=== PATIENT | male | born 1990 | race Caucasian/White ===

== ENCOUNTER → 2020-01-25 | Outpatient (CLI) | payer OTHER ==
[~2020-01-25] MED LIST: AMANTADINE100 MG PO; COPAXONE20 MG/KIT IM; COPAXONE20 MG/KIT INJ; DEPAKOTE250 MG PO; FISH OIL300 MG; FLOMAX0.4 MG PO; LEVAQUIN750 MG PO; TEGRETOL XR100 MG PO; TOPAMAX50 MG; VERAPAMIL ER180 M1; VITAMIN D35000 UNI1 OD
--- NOTE | 2020-01-25 19:13 | Diagnostic Imaging Report ---
Hepatobiliary Scan with Gallbladder Ejection Fraction Reason for exam: RUQ pain Technique: Following intravenous administration of 6.6 millicuries of Tc-99m mebrofenin, dynamic images of the abdomen in the anterior projection were obtained through 60 minutes. Sincalide (CCK analog) 3.2 micrograms was administered intravenously over 30 minutes with additional imaging for determination of gallbladder ejection fraction. Discussion: Perfusion of the liver is normal. Extraction of tracer by the liver parenchyma is normal. Tracer appears promptly within the biliary tract. The gallbladder begins to fill by 21 minutes post injection of tracer and fills adequately. Tracer is seen in the small bowel by 12 minutes. The gallbladder ejection fraction with sincalide is 15% (normal greater than 40%). Impression: 1. Filling of the gallbladder excludes acute cystic duct obstruction/acute cholecystitis. 2. The decreased gallbladder ejection fraction of 15% supports the clinical diagnosis of chronic cholecystitis/gallbladder dyskinesia. Signed by: Dr. Macy Camacho M.D. on 01/25/2020 7:10 PM
== END ==
LOC: NM 12:01
PROVIDERS: ATTEND Internal Medicine
DX: R10.11 Right upper quadrant pain (principal); K82.9 Disease of gallbladder, unspecified
CPT/HCPCS: 78227; A9537